=== PATIENT | female | born 1980 | race Caucasian/White ===

== ENCOUNTER 2016-12-29 09:26 | Day surgery (SDC) | payer OTHER ==
[~2016-12-29] VITALS: Ht 160 cm; Wt 65.8 kg
[2016-12-29] MEDS ORDERED: CEFAZOLIN SOD 1 GM/ ISO 50 ML PREMIX IV ONE (10:30)
[2016-12-29] MEDS ORDERED: NS IRRIG SOLN 1000 ML IR ONE (12:00)
[2016-12-29] MEDS ORDERED: fentaNYL CITRATE/PF 100 MCG/2 ML AMP IVP ONE (12:00)
[2016-12-29] MEDS ORDERED: PROPOFOL 200MG/ 20ML VIAL (DIPRIVAN) IV ONE (12:00)
[2016-12-29] MEDS ORDERED: fentaNYL CITRATE 250 MCG/5 ML AMP IV ONE (12:00)
[2016-12-29] MEDS ORDERED: LR 1,000 ML IV.SOLN IV ONE (12:00)
[2016-12-29] MEDS ORDERED: SEVOFLURANE 15 MIN GAS INH ONE (12:00)
[2016-12-29] MEDS ORDERED: ROCURONIUM BROMIDE 10 MG/ML (ZEMURON) IV ONE (12:00)
[2016-12-29] MEDS ORDERED: FUROSEMIDE 20 MG/2 ML VIAL IVP ONE (12:00)
[2016-12-29] MEDS ORDERED: BUPIVACAINE /EPINEPHRINE/PF 0.5% 30 ML VIAL INJ ONE (12:00)
[2016-12-29] MEDS ORDERED: NS 1000 ML BAG IV ONE (12:00)
[2016-12-29] MEDS ORDERED: ONDANSETRON HCL 4 MG/2 ML VIAL IVP ONE (12:00)
[2016-12-29] MEDS ORDERED: DEXTROSE 50% JECT 50 ML DISP.SYRIN IVP ONE (12:00)
[2016-12-29] MEDS ORDERED: MIDAZOLAM HCL 5 MG/5 ML VIAL IVP ONE (12:00)
[2016-12-29] MEDS ORDERED: KETOROLAC TROMETHAMINE 30 MG VIAL IVP ONE ×2 (12:00→17:00)
[2016-12-29] MEDS ORDERED: LR 1,000 ML IV SCH (12:51)
[2016-12-29] MEDS ORDERED: METOCLOPRAMIDE HCL 10 MG/2 ML VIAL IVP PRN (13:00)
[2016-12-29] MEDS ORDERED: MORPHINE 2 MG/ML INJ. SYRINGE IVP PRN ×3 (13:00)
[2016-12-29] MEDS ORDERED: OXYCODONE/ACETAMINOPHEN 5-325 TABLET PO PRN ×2 (14:30)
[2016-12-29] MEDS ORDERED: ONDANSETRON HCL 4 MG/2 ML VIAL IVP PRN (14:30)
[2016-12-29] MEDS ORDERED: HYDROcodone/ACETAMIN 5-325 MG TAB (NORCO/ VICODIN) PO PRN (14:30)
[2016-12-29] MEDS ORDERED: METOCLOPRAMIDE HCL 10 MG/2 ML VIAL ONE (14:55)
[2016-12-29 15:13] VITALS: BP_SYST 122
[2016-12-29] MEDS ORDERED: OXYCODONE/ACETAMINOPHEN 5-325 TABLET ONE (16:24)
== END 2016-12-29 19:10 | disposition home or self-care (01) ==
LOC: SDS 09:26 → SMU 09:27 → SDS 19:10
PROVIDERS: ATTEND Specialist
DX: D25.1 Intramural leiomyoma of uterus (principal); D25.0 Submucous leiomyoma of uterus; N84.0 Polyp of corpus uteri; Z98.890 Other specified postprocedural states; N73.6 Female pelvic peritoneal adhesions (postinfective); Z85.41 Personal history of malignant neoplasm of cervix uteri
CPT/HCPCS: 52000; 58571; 88305; 88307; C1727; J0690; J1885; J1940; J2250; J2405; J2704; J2765; J3010 ×2; J3490; J7030; J7120; E0190